=== PATIENT | female | born 1955 | race Caucasian/White ===

== ENCOUNTER 2023-10-16 05:48 | Day surgery (SDC) | payer BC, MEDICARE ==
[2023-10-16] MEDS ORDERED: Dextrose 5%-0.45% NaCl 1,000 ML IV SCH (06:00)
[2023-10-16] MEDS ORDERED: Midazolam 1 MG/ML 2 ML SDV ONE (06:06)
[2023-10-16] MEDS ORDERED: fentaNYL 100 MCG/2 ML SDV ONE (06:06)
[2023-10-16] MEDS ORDERED: fentaNYL 100 MCG/2 ML SDV IV ONE ×3 (07:05→07:12)
[2023-10-16] MEDS ORDERED: Midazolam 1 MG/ML 2 ML SDV IV ONE ×6 (07:06→07:11)
== END 2023-10-16 08:50 | disposition home or self-care (01) ==
LOC: DL.ENDO 05:48
PROVIDERS: ATTEND Internal Medicine Gastroenterology
DX: Z12.11 Encounter for screening for malignant neoplasm of colon (principal); E03.9 Hypothyroidism, unspecified
CPT/HCPCS: 45378; J2250; J3010; J7042